=== PATIENT | male | born 1980 ===

== ENCOUNTER 2019-11-25 07:53 | Emergency (ER) | payer SELFPAY ==
[~2019-11-25] VITALS: Ht 175.3 cm; Wt 95.2 kg
[2019-11-25] MEDS ORDERED: TYLENOL EXTRA500 MG PO (08:04)
[2019-11-25] MEDS ORDERED: NEURONTIN600 MG PO (08:04)
[2019-11-25] MEDS ORDERED: ADVIL200 MG PO (08:05)
[2019-11-25] MEDS ORDERED: PREDNISONE20 MG PO (08:12)
[2019-11-25] MEDS ORDERED: PREDNISONE10 MG PO (08:12)
== END 2019-11-25 08:17 | disposition home or self-care (01) ==
LOC: ED 07:53
DX: G56.03 Carpal tunnel syndrome, bilateral upper limbs (principal); Z88.1 Allergy status to other antibiotic agents; Z88.5 Allergy status to narcotic agent; Z79.899 Other long term (current) drug therapy
CPT/HCPCS: 99283